=== PATIENT | female | born 1950 | race Caucasian/White ===

== ENCOUNTER 2017-06-22 05:30 | Day surgery (SDC) | payer OTHER ==
[2017-06-22] MEDS ORDERED: MACROBID 100 M100 MG PO (12:09)
[2017-06-22] MEDS ORDERED: ULTRACET PO (12:09)
== END 2017-06-22 16:15 | disposition home or self-care (01) ==
LOC: CIR.AMB 05:30
DX: N81.11 Cystocele, midline (principal); N81.6 Rectocele; N81.5 Vaginal enterocele; N39.3 Stress incontinence (female) (male)

== ENCOUNTER 2018-06-07 07:03 | Day surgery (SDC) | payer OTHER ==
[~2018-06-07 07:03] MED LIST: EVISTA60 MG PO; MACROBID 100 M100 MG PO; ULTRACET PO
[2018-06-07] MEDS ORDERED: MACROBID 100 M100 MG PO (14:28)
[2018-06-07] MEDS ORDERED: ULTRACET PO (14:29)
== END 2018-06-07 18:35 | disposition home or self-care (01) ==
LOC: CIR.AMB 07:03
DX: N81.81 Perineocele (principal)